=== PATIENT | male | born 1935 | race Caucasian/White ===

== ENCOUNTER 2024-10-23 10:52 | Outpatient (CLI) | payer MEDICARE, OTHER, SELFPAY | END 2024-10-23 10:53 | disposition home or self-care (01) | LOC: US 10:55 | PROVIDERS: PCP Family Medicine; Visit Provider Family Medicine | DX: E04.1 Nontoxic single thyroid nodule (principal) | CPT/HCPCS: 10005; 76942; 88173 ==

== ENCOUNTER 2025-07-14 11:01 | Outpatient (CLI) | payer MEDICARE, OTHER, SELFPAY | END 2025-07-14 11:02 | disposition home or self-care (01) | LOC: AMB 19:01 | PROVIDERS: PCP Family Medicine; Visit Provider Emergency Medicine | DX: R55 Syncope and collapse (principal) | CPT/HCPCS: A0425; A0427 ==

== ENCOUNTER 2025-07-14 11:46 | Emergency (ER) | payer MEDICARE, OTHER, SELFPAY ==
[2025-07-14 12:02] VITALS: BP 124/69; PULSE 63; RESP 20; TEMP 36.3; O2SAT 95; BMI 37.3
--- NOTE | 2025-07-14 12:27 | ED.GENADULT ---
HPI - General Adult General Chief complaint: Hypotension Stated complaint: Hypotension Time Seen by Provider: 07/14/25 12:17 History of Present Illness HPI narrative: c/o lightheaded pt. joined the [facility] today with and was riding a stationary bike when per EMS [facility] staff said he stopped responding per EMS pt. was lightheaded and hypotensive . lowest BP for EMS was 61/54. pt. states he started a new water pill in the last 6 weeks, and drinks 4-5 glasses of water a day. pt. has bandage on head from outpatient procedure, no falls or LOC. pt. got 500 CC NS from EMS 89-year-old man presenting to the emergency department via EMS following a near syncopal event. 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 He does not believe that it has a defibrillator component. Finally today after years of encouragement he has started exercising. 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 Exercise before used to be golfing. Walking can only go a few blocks but that is not unusual. After spending time on the exercise bike today he got off and was feeling lightheaded. Went to sit on a bench. He did not place his head between his legs in lightheadedness continued. He was feeling some tension in the left posterior neck upper back area has since resolved. He did not have chest pain or experiencing unusual shortness of breath. No sense of palpitations. Six weeks ago did begin what sounds like furosemide. Did have a recent Mohs procedure on his scalp. Exam looks like skin graft was obtained from the right upper chest/supraclavicular area. He remains anticoagulated with apixaban Related Data Home Medications ?Medication ?Instructions ?Recorded ?Confirmed apixaban 5 mg tablet (Eliquis) 5 mg PO BID 07/14/25 07/14/25 Allergies Allergy/AdvReac Type Severity Reaction Status Date / Time contrast dye Allergy Mild Rash Uncoded 07/14/25 12:01 Review of Systems Status of ROS: Reports: 6 or more systems reviewed and unremarkable except as noted in History and below PFSH PFSH Social History Smoking Status: Never smoker How often do you have a drink containing alcohol: never AUDIT-C Alcohol total score: 0 Non-prescribed substance use: denies use Exam Narrative: Exam Narrative: Pleasant. Appears little tired but answers questions quickly easily. Cranial nerves 2-12 intact. He transitions without notable difficulty. Skin is warm and dry. No indication of injury. There is well-healing surgical scar at the right mid clavicle and removing bandages from the scalp there is healing ulceration that does not look to be infected. Heart in slow rate but regular rhythm. Lungs are clear. Abdomen is soft and nontender. Moving all extremities without difficulty. No lower extremity edema. Do check orthostatics and they are unremarkable. Const: Vital Signs, click to edit/add: Vital Signs - 24 hr 07/14/25 12:02 07/14/25 12:58 Temperature 97.3 F L Pulse Rate [Pulse Oximeter] 63 Pulse Rate [orthos tatic lying Right Pulse Oximeter] 60 Pulse Rate [orthos tatic sitting Righ t Pulse Oximeter] 62 Pulse Rate [orthos tatic standing Rig ht Pulse Oximeter] 70 Respiratory Rate 20 Blood Pressure [Ri ght Upper Arm] 124/69 Blood Pressure [or thostatic lying Ri ght Arm] 119/67 Blood Pressure [or thostatic sitting Right Arm] 129/74 Blood Pressure [or thostatic standing Right Arm] 131/73 Pulse Oximetry 95 Documenting provider has reviewed patient's vital signs: yes Course Vital Signs Vital signs: Initial Vital Signs Temperature 97.3 F L 07/14/25 12:02 Temperature Source Temporal Artery Scan 07/14/25 12:02 Pulse Rate 63 07/14/25 12:02 Respiratory Rate 20 07/14/25 12:02 Blood Pressure 124/69 07/14/25 12:02 Blood Pressure Mean 87 07/14/25 12:02 Pulse Oximetry 95 07/14/25 12:02 Vital Signs Temperature 97.3 F L 07/14/25 12:02 Pulse Rate 63 07/14/25 12:02 Respiratory Rate 20 07/14/25 12:02 Blood Pressure 124/69 07/14/25 12:02 Pulse Oximetry 95 07/14/25 12:02 Temperature 97.3 F L 07/14/25 12:02 Pulse Rate 60 07/14/25 12:58 Respiratory Rate 20 07/14/25 12:02 Blood Pressure 119/67 07/14/25 12:58 Pulse Oximetry 95 07/14/25 12:02 Medications Administered Medications: Discontinued Medications Generic Name Dose Route Start Last Admin Trade Name Azalia PRN Reason Stop Dose Admin Sodium Chloride 1,000 mls @ 1,000 mls/hr 07/14/25 12:58 07/14/25 14:46 0.9 % Sodium Chloride 1000 Ml IV 07/14/25 13:57 1,000 mls/hr .Q1H ONE Infusion Medical Decision Making MDM Narrative Medical decision making narrative: Monitor for time on garden consultant looking for evidence of arrhythmia. I do think this was a near syncopal, vasovagal event. Probably brought on by unusual level of exercise. Check standard labs for red flags. Anemia? Orthostatics are reassuring. Mildly elevated WBCs of unclear etiology No event during time of monitoring in the ER. Received a liter of NS. Continues to feel well. See patient discharge plan for further discussion. It could be that some degree of dehydration played a role in your symptoms today though I can not prove it here. Your workup here today looked quite good. No evidence of an arrhythmia either. It would seem that maybe you just pushed it a little bit too much too soon. Maybe cut this back to half of what you did today for a week and then try to work your way back up. I would discuss your efforts at exercise with your primary care provider. Discuss medications that might make it use your harder for you to work out. I would encourage you to continue with these efforts at physical activity as I think you will be better for it in the long run. Medical Records Medical records reviewed: Yes I reviewed the patient's medical records Lab Data Lab results reviewed: Yes I reviewed the patient's lab results Labs: Lab Results 07/14/25 07/14/25 Range/Units 13:18 14:15 WBC 13.36 H (4.50-11.00) K/uL RBC 5.41 (4.30-5.90) m/uL Hgb 15.1 (13.5-17.5) gm/dL Hct 45.5 (37.0-53.0) % MCV 84 (80-100) fL MCH 28 (26-34) pg MCHC 33 (32-36) gm/dL RDW Coeff of Ilia 12.7 (11.5-15.5) % Plt Count 203 (140-440) K/uL Neut % (Auto) 81.0 H (42.0-72.0) % Lymph % (Auto) 9.9 L (20-44) % [place] % (Auto) 6.6 (0.0-11.0) % Eos % (Auto) 1.8 (0.0-7.0) % Baso % (Auto) 0.4 (0.0-3.0) % Neut # (Auto) 10.80 H (1.7-7.0) K/uL Lymph # (Auto) 1.30 (0.90-2.90) K/uL [place] # (Auto) 0.90 (0.00-0.90) K/UL Eos # (Auto) 0.20 (0.00-0.50) K/uL Baso # (Auto) 0.10 (0.00-0.30) K/uL Abs Immat Gran (auto) 0.00 (0.00-0.30) K/uL Imm/Tot Granulo (auto) 0.3 % INR 1.39 H (0.91-1.10) APTT 30 (23-33) Seconds Sodium 137 (135-149) mmol/L Potassium 4.3 (3.6-5.1) mmol/L Chloride 104 (96-114) mmol/L Carbon Dioxide 19 L (20-32) mmol/L Anion Gap 14 (7-15) mEq/L BUN 18 (7-30) mg/dL Creatinine 1.2 (0.5-1.5) mg/dL Estimated Creat Clear 44.78 Estimated GFR 59 ml/min Glucose 115 (60-115) mg/dL Calcium 9.3 (8.4-10.6) mg/dL Troponin I < 0.01 (0.01-0.04) ng/mL NT-Pro-B Natriuret Pep 1800 H (See Note) pg/mL Urine Color Yellow (Yellow) Urine Appearance Clear (Clear) Urine pH 6.0 (5.0-8.5) Ur Specific [place] 1.020 (1.000-1.030) Urine Protein Trace A (Negative) Urine Glucose (UA) Negative (Negative) Urine Ketones Negative (Negative) Urine Blood Negative (Negative) Urine Nitrite Negative (Negative) Urine Bilirubin Negative (Negative) Urine Urobilinogen 1.0 (0.2-1.0) Ur Leukocyte Esterase Negative (Negative) Urine RBC 0-2 (0-2) Urine WBC 0-2 (0-5) Ur Squamous Epith Cells None (None-Few) Urine Bacteria None (None) POC Troponin I 0.03 (0.01-0.04) ng/ml ECG Data Attestation: I personally reviewed and interpreted this ECG as follows: (Intraventricular block. Rate of 62. No prior for comparison. PVC?) Discharge Plan Discharge Clinical Impression: Near syncope Patient Disposition: Home w/ Parent or Adult Additional Instructions: It could be that some degree of dehydration played a role in your symptoms today though I can not prove it here. Your workup here today looked quite good. No evidence of an arrhythmia either. It would seem that maybe you just pushed it a little bit too much too soon. Maybe cut this back to half of what you did today for a week and then try to work your way back up. I would discuss your efforts at exercise with your primary care provider. Discuss medications that might make it use your harder for you to work out. I would encourage you to continue with these efforts at physical activity as I think you will be better for it in the long run. Prescriptions: No Action Eliquis 5 mg tablet 5 mg PO BID Follow Up/Referrals: Rashida Kiser DO [Primary Care Provider, Family Practice] Stand Alone Forms: MyHealth Info Instructions
[2025-07-14 12:58] VITALS: BP 119/67; BP 129/74; BP 131/73; PULSE 60; PULSE 62; PULSE 70
[2025-07-14 13:33] LABS: Hematocrit* 45.5 % (37.0-53.0); Hemoglobin* 15.1 gm/dL (13.5-17.5); Immature Granulocytes Pct Auto 0.3 %; Mean Corpuscular HGB Conc 33 gm/dL (32-36); Mean Corpuscular Hemoglobin 28 pg (26-34); Mean Corpuscular Volume 84 fL (80-100); RDW Coefficient of Variation % 12.7 % (11.5-15.5); Red Blood Count* 5.41 m/uL (4.30-5.90); White Blood Count* 13.36 K/uL (4.50-11.00)
[2025-07-14 13:36] LABS: Immature Granulocytes Abs Auto 0.00 K/uL (0.00-0.30); Lymphocytes Absolute Auto 1.30 K/uL (0.90-2.90)
[2025-07-14 13:37] LABS: Slide Review Reflex No
[2025-07-14 13:42] LABS: Chloride* 104 mmol/L (96-114); Sodium* 137 mmol/L (135-149)
[2025-07-14 13:43] LABS: Potassium* 4.3 mmol/L (3.6-5.1)
--- OUTSIDE RECORDS SUMMARY | 2025-07-14 13:43 | XMS_ITS | Clinical Summary ---
Author Organization [facility] Address [address] [place] [id number] Care Team Providers Care Audio Video Technician Name Role Phone David Smart MD Unavailable [phone] Rashida Kiser DO Primary Care Provider [phone] Allergies Active Allergy Reactions Criticality Noted Date Comments Perflutren Lipid Microspheres Hives stress echo contrast Shellfish Containing Products Other - Describe In Comment Field High 08/01/2007 throat swells Azithromycin Syncope High 10/01/2019 Prolonged QT and possible torsades Medications blood sugar diagnostic (Accu-Chek Guide test strips) stripIndications:Contro lled type 2 diabetes mellitus without complication, without long-term current use of insulin (HC) Dispense item covered by pt ins. 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 05/19/20 24 Active ketoconazole 2 % creamIndications:Rash APPLY TOPICALLY TO AFFECTED AREA TWICE DAILY UNTIL RESOLVED 60 g 11 01/16/20 25 Active ketoconazole 2% shampoo 2 % shampooIndications:Rash Shampoo the hair thoroughly each day for 3 days. 120 mL 1 01/16/20 25 Active calcium carbonate/vitamin D3 (CALCIUM 500 + D ORAL) Take 1 Tablet by mouth once every other day. Active metoprolol tartrate 25 mg tabletIndications:Essen tial hypertension,Atheroscle rosis of [place] coronary artery of [place] heart without angina pectoris Take 1 Tablet (25 mg) by mouth two times daily. 180 Tablet 3 03/19/20 25 Active lisinopriL 40 mg tabletIndications:HTN (hypertension) Take 1 Tablet (40 mg) by mouth once daily. 90 Tablet 3 03/19/20 25 Active amLODIPine 10 mg tabletIndications:Essen tial hypertension Take 1 Tablet (10 mg) by mouth once daily. 90 Tablet 3 03/19/20 25 Active apixaban (Eliquis) 5 mg tabletIndications:Parox ysmal atrial fibrillation (HC) Take 1 Tablet (5 mg) by mouth two times daily. 180 Tablet 3 03/19/20 25 Active atorvastatin 20 mg tabletIndications:Pure hypercholesterolemia Take 1 Tablet (20 mg) by mouth at bedtime. 90 Tablet 3 03/19/20 25 Active clobetasol 0.05% TOPICAL 0.05 % external solutionIndications:Sca lp irritation Use 1-2 times a week on scalp to help with scalp itching 50 mL 1 03/19/20 25 Active furosemide (LASIX) 20 mg tabletIndications:Histo ry of chronic CHF 20mg every other day. 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 Referral to [facility]. Type 2 diabetes mellitus wit h stage 3 chronic kidney disease, without long-term current use of insulin, unspecified whether stage 3a or 3b CKD 11/22/2023 Left-sided cerebrovascular accident (CVA) 2020 Overview (11/25/2020): Right homonymous hemianopsia Probably due to new onset atrial fibrillation on 11/11/2020 CAD (coronary artery disease) 11/15/2020 HTN (hypertension) 11/15/2020 CKD (chronic kidney disease), stage III 11/15/19 21 Paroxysmal atrial fibrillation 11/15/2020 NSTEMI (non-ST elevated myocardial infarction) 0 11/10/2020 CHB (complete heart block) 11/10/2020 Prolonged QT interval 10/01/2019 Gouty arthritis of left great toe 01/09/2019 Controlled type 2 diabetes m ellitus without complication, without long-term current use of insulin 01/29/2017 Basal cell carcinoma of left eyelid 02/05/2015 Physical exam, annual 12/30/2013 Squamous cell carcinoma, 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 Overview (12/30/2013): Removed 07/2013 Atypical mole 02/22/2011 Overview (03/09/2011): back, moderate atypia Chronic rhinitis 10/07/2009 Unspecified essential hypertension 08/01/2007 Overview (08/01/2007): 1985 Pure hypercholesterolemia 08/01/2007 Obesity, unspecified 08/01/2007 Atherosclerosis of [place] co ronary artery of [place] heart without angina pectoris 08/01/2007 Overview (12/30/2013): Angioplasty -1995 Postsurgical percutaneous tr ansluminal coronary angioplasty status 08/01/2007 Overview (08/01/2007): Gastroesophageal reflux disease without esophagi tis 08/01/2007 Allergic rhinitis, cause unspecified 08/01/2007 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 08/01/2007 Overview (08/01/2007): nose 2006 Resolved Problems Problem Noted Date Diagnosed Date Resolved Date Acute diastolic CHF (congest roro heart failure) 11/15/2020 11/22/2023 Acute hypoxemic respiratory failure 11/10/2020 03/08/2022 Encounters Date Type Department Care Team Description 06/10/2025 10:00 AM CDT Office Visit [facility] [address] [place] [address] Giles Kaye MD Consult 06/10/2025 Travel 06/06/2025 Travel 05/12/2025 10:00 AM CDT Office Visit [facility] [address] [facility] [address] Rashida Kiser DO Medication Management (furosemide) 05/12/2025 Travel 05/07/2025 Travel 04/25/2025 Orders Only [facility] [address] [facility] [address] Rashida Kiser DO <No scans attached> 04/24/2025 10:00 AM CDT Ancillary Procedure [facility] [address] [facility] [id number] 04/24/2025 Travel from Last 3 Months Immunizations Immunization Administration Dates Next Due COVID-19 VACCINE SPIKEVAX (M ODERNA 50MCG/0.5ML) 12YO+ PFS 03/19/2025,10/12/2023 COVID-19 vaccine (Pfizer-Bio NTech 30mcg/0.3mL) 12YO+ BIVALENT PF, MDV 03/12/2023 COVID-19 vaccine (Pfizer-BioNTech 30mcg/0.3mL) P F, MDV 11/30/2020,11/04/2020 Influenza RIV4 (Age 18+ Years) PRESERV FREE 02/2020 Influenza, High-dose Inactivated 08/25/2014 Influenza, High-dose Quadrivalent Inactivated ,06/24/2021 Influenza, IIV3 (Age >=3 years) 10/16/2012,08/01 Influenza, Inactivated AIIV4 (Age 65+ Years) Preserv Free 06/08/2022 Influenza, Inactivated IIV3 (Age 65+ Years) Preserv Free 06/05/2024 Pneumococcal Poly,23-Valent (Pneumovax) 10/16/19 13 Pneumococcal conj 13-Valent (Prevnar 13) 015 Td, Preservative Free (age >= 7 Years) 7 Tdap 10/16/2012 Family History Medical History Relation Name Comments Hypertension Father Stroke Father d 86 yo Diabetes Maternal Grandfather Heart Disease Mother d 88 yo 1st NV at 51 yo Hypertension Mother Hypertension Sister 1 Hypertension Sister 2 Relation Name Status Comments Father Maternal Grandfather Mother Sister 1 Sister 2 Social History Tobacco Use Types Packs/Day Years Used Date Smoking Tobacco: Never Smokeless Tobacco: Never Tobacco Cessation:Counseling Given: Yes Alcohol Use Standard Drinks/Week Comments Not Currently 0 (1 standard drink = 0.6 oz pur e alcohol) 1 glass of wine a month PHQ-2 Answer Date Recorded PHQ-2 TOTAL SCORE 0 03/19/2025 Social Connections Answer Date Recorded Do you often feel lonely or isolated from those around you? 0 03/15/2025 Alcohol Use Answer Date Recorded How often do you have a drink containing alcohol ? 1 06/10/2025 How many drinks containing a lcohol do you have on a typical day when you are drinking? 0 06/10/2025 How often do you have five or more drinks on one occasion? 0 06/10/2025 Financial Resource Strain Answer Date R ecorded Difficulty of Paying Living Expenses 3 03/15/2025 Difficulty of Paying Living Expenses Not on file 03/15/2025 Food Insecurity Answer Date Recorded Do you worry your food will run out before you are able to buy more? 1 03/15/2025 Transportation Needs Answer Date Record ed Does lack of transportation keep you from medica l appointments? 1 03/15/2025 Does lack of transportation keep you from work, meetings or getting things that you need? 1 03/15/2025 Housing Stability Answer Date Recorded What is your housing situation today? 1 03/15/2025 Utilities Answer Date Recorded Do you have trouble paying f or utilities (for example, heat, electricity, water, phone)? 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 Gender Identity Not on file Sexual Orientation Not on file Occupation Industry Job Start Date Job End Date retired early Not on file Not on file Not on file Obstetrics History Last Filed Vital Signs Vital Sign Reading Time Taken Comments Blood Pressure 126/64 06/10/2025 10:01 AM CDT Pulse 64 06/10/2025 10:01 AM CDT Temperature 36.3 C (97.3 F) 07/26/2021 12:30 PM CDT Respiratory Rate 16 07/26/2021 12:30 PM CDT Oxygen Saturation 97% 06/10/2025 10:01 AM CDT Inhaled Oxygen Concentration - - Weight 94.8 kg (209 lb 1.6 oz) 06/10/2025 10:01 AM CDT Height 170.2 cm (5' 7) 03/19/2025 10:33 AM CDT Body Mass Index 32.75 03/19/2025 10:33 AM CDT Plan of Treatment Upcoming Encounters Date Type Department Care Team (Late st Contact Info) Description 10/12/2025 Cardiac Device Check [facility] [phone] Health Maintenance Due Date Last Done Comments Zoster (shingles) series for age 50+ (1 of 2) 1954 RSV vaccine for adults or (1 - 1-dose 75+ series) 2012 Tetanus booster 10/16/2022 10/16/2012, 09/25, 08/01/2007 COVID-19 vaccine series ( season) 2025 03/19/2025, 07/28/2024, 10/12/2023, Additional history exists Influenza Vaccine (#1) 2025 , 06/08/2022, 06/29/2020, Additional history exists BMI (ht and wt on same day) for age 18+ 03/19/2026 03/19/2025, 03/17/2024, 03/12/2023, Additional history exists Depression screening for age 12+ 03/19/2026 03/19/2025, 03/17/2024, 03/15/2023, Additional history exists Medicare Wellness for age 65+ 03/20/2026 03/19/2025, 03/17/2024, 03/12/2023, Additional history exists Pneumococcal series for age 50+ Completed 01/06/2015, 10/16/2012 Hepatitis B series for 19+ Aged Out N o longer eligible based on patient's age to complete this topic Procedures Procedure Name Priority Date/Time Associated Diagnosis Comments BASIC METABOLIC PANEL Routine 05/12/2025 11:10 AM CDT History of chronic CHF ECHO TTE COMPLETE WO CONTRAST Routine 04/24/2025 11:03 AM CDT History of chronic CHF Bilateral lower extremity edema from Last 3 Months Results * (ABNORMAL) BASIC METABOLIC PANEL (05/12/2025 11:10 AM CDT) SODIUM 140 135 - 146 mmol/L 05/13/2025 6:27 AM CDT [facility] POTASSIUM 4.1 3.5 - 5.3 mmol/L 05/13/2025 6:27 AM CDT [facility] CARBON DIOXIDE 28 20 - 32 mmol/L 05/13/2025 6:27 AM CDT [facility] GLUCOSE 108(H) 65 - 99 mg/dL 05/13/2025 6:27 AM CDT [facility] Comment: Fasting reference interval For someone without known diabetes, a glucose value between 100 and 125 mg/dL is consistent with prediabetes and should be confirmed with a follow-up test. CALCIUM 9.9 8.6 - 10.3 mg/dL 05/13/2025 6:27 AM CDT [facility] CREATININE 1.18 0.70 - 1.22 mg/dL 05/13/2025 6:27 AM CDT [facility] BUN/CREATININE RATIO SEE NOTE: 6 - 22 (calc) 05/13/2025 6:27 AM CDT [facility] Comment: Not Reported: BUN and Creatinine are within reference range. EGFR 60 > OR = 60 mL/min/1. 73m2 05/13/2025 6:27 AM CDT [facility] UREA NITROGEN (BUN) 23 7 - 25 mg/dL 05/13/2025 6:27 AM CDT [facility] ELECTROLYTE BALANCE 8 7 - 17 mmol/L (calc) 05/13/2025 6:27 AM CDT [facility] CHLORIDE 104 98 - 110 mmol/L 05/13/2025 6:27 AM CDT [facility] Blood BLOOD SPECIMEN / Unknown [facility] / Unknown 05/12/2025 11:10 AM CDT 05/12/2025 11:16 AM CDT us Rashida Kiser DO CHEMISTRY Final Resu lt [facility] [address] [place] [address], * ECHO TTE COMPLETE WO CONTRAST (04/24/2025 11:03 AM CDT) AORTIC VALVE MEAN PG 3 mmHg EJECTION FRACTION 51 % PEAK TR VELOCITY 2.4 m/s LVEDD 3.6 cm MITRAL VALVE MR ERO 23 mm2 EJECTION FRACTION 50 - 55% Anatomical Region Laterality Modality Ultrasound 04/24/2025 10:0 5 AM CDT Narrative 04/24/2025 11:43 AM CDT ECHOCARDIOGRAM SHADI DURAN : 1935 89 years Study Date: 04/24/2025 10:05:29 AM Gender: M BP: 0/0 mmHg Height: 170.00 cm BSA: 2.06 m Weight: 95.00 kg Tech: YONATAN Referring MD: RASHIDA KISER Site: [facility] Reading Location: Mobile OP Patient Location: Outpatient. Procedure: 2D, Color Doppler and Spectral Doppler. Indication for study: Edema/ Pacemaker Cardiac Rhythm: Normal sinus.Study quality: Good. Final Impressions: 1. LVEF estimate 50-55%. Severe asymmetric LVH. 2. Normal RV size and global function. Device lead in the right heart. 3. Moderate MR. 4. Vwea-vb-tkksgbaw TR. 5. Moderate MYRIAM. 6. Mild AI. 7. Normal PASP and RAP estimates. Chamber Sizes and Function Severe asymmetric left ventricular hypertrophy. No resting regional wall motion abnormality visualized. Left atrial size is moderately enlarged. Right ventricular cavity size is normal, global systolic RV function is normal. Pacing wire/catheter visualized in the right ventricle. The right atrium is moderately enlarged. Right atrial area is 22 cm . The pulmonary artery is not well visualized. The sinus of Valsalva is normal sized. The ascending aorta is normal sized. Valves, RV Pressures and Diastolic Function The aortic valve is sclerotic, no stenosis and mild regurgitation. The mitral valve is normal in structure, moderate mitral regurgitation. Indeterminate pattern of LV diastolic filling. The tricuspid valve is normal in structure, mild-moderate tricuspid regurgitation. The tricuspid regurgitant velocity is 2.4 m/s, the estimated right ventricular systolic pressure is 24 mmHg plus right atrial pressure. There is normal estimated pulmonary pressure by tricuspid regurgitation velocity and right atrial pressure. The pulmonic valve is not well visualized. No pulmonary regurgitation. TTE images do not appear adequate for transcather intervention with patient supine. Masses, Effusion, Shunts There is no pericardial effusion. The inferior vena cava is normal sized, respiratory size variation greater than 50%. No left to right shunting was detected by limited color flow Doppler interrogation of the interatrial septum. MEASUREMENTS AND CALCULATIONS 2-D Measurements and LV Function: LVID (d) 3.6 cm LVOT diameter 2.1 cm IVS (d) 1.6 cm HR 68 bpm LVPW (d) 1.6 cm LA Vol index 48 ml/m2 Ao Sinus 3.7 cm RA area 22 cm Ao Sinus ULN 4.2 cm * RV Basal Diam 4.5 cm Asc Ao 3.9 cm RV Mid Diam 3.2 cm Asc Ao ULN 4.4 cm * * Input age outside of range, reported values correspond to Age = 82 Diastology: Mitral Tissue Doppler E Peak 1.4 m/s e', Septum 0.06 m/s A Peak 0.5 m/s e', Lateral 0.11 m/s E/A 2.9 E/e' Average 16.14 DT 216 msec Aortic Valve: Vmax 1.2 m/s JOAN (V) 3.20 cm VTI 0.27 m JOAN (I) 3.32 cm LVOT V max 1.0 m/s Max PG 6 mmHg LVOT VTI 0.25 m Mean PG 3 mmHg SV 91 ml Dim Index 0.92 SV index 44 ml/m CO 6.2 l/min CI 3.0 l/min/m Mitral Valve: MVA 3.5 cm MR ERO 0.23 cm MV P 1/2 63 msec MR Vol. 36 ml MR TVI 1.55 m Tricuspid Valve and estimated PA pressures: TR Vmax 2.4 m/s TAPSE 2.2 cm TR maxG 24 mmHg . This study was interpreted by an [facility] accredited facility. Final Procedure Note Alberto Tatum MD - 04/24/2025 ECHOCARDIOGRAM SHADI DURAN : 1935 89 years Study Date: 04/24/2025 10:05:29 AM Gender: M BP: 0/0 mmHg Height: 170.00 cm BSA: 2.06 m Weight: 95.00 kg Tech: YONATAN Referring MD: RASHIDA KISER Site: [facility] Reading Location: Mobile OP Patient Location: Outpatient. Procedure: 2D, Color Doppler and Spectral Doppler. Indication for study: Edema/ Pacemaker Cardiac Rhythm: Normal sinus.Study quality: Good. Final Impressions: 1. LVEF estimate 50-55%. Severe asymmetric LVH. 2. Normal RV size and global function. Device lead in the right heart. 3. Moderate MR. 4. Riic-zs-ybrhomny TR. 5. Moderate MYRIAM. 6. Mild AI. 7. Normal PASP and RAP estimates. Chamber Sizes and Function Severe asymmetric left ventricular hypertrophy. No resting regional wallmotion abnormality visualized. Left atrial size is moderately enlarged.Right ventricular cavity size is normal, global systolic RV function isnormal. Pacing wire/catheter visualized in the right ventricle. The rightatrium is moderately enlarged. Right atrial area is 22 cm . The pulmonaryartery is not well visualized. The sinus of Valsalva is normal sized. Theascending aorta is normal sized. Valves, RV Pressures and Diastolic Function The aortic valve is sclerotic, no stenosis and mild regurgitation. Themitral valve is normal in structure, moderate mitral regurgitation.Indeterminate pattern of LV diastolic filling. The tricuspid valve isnormal in structure, mild-moderate tricuspid regurgitation. The tricuspidregurgitant velocity is 2.4 m/s, the estimated right ventricular systolicpressure is 24 mmHg plus right atrial pressure. There is normal estimatedpulmonary pressure by tricuspid regurgitation velocity and right atrialpressure. The pulmonic valve is not well visualized. No pulmonaryregurgitation. TTE images do not appear adequate for transcatherintervention with patient supine. Masses, Effusion, Shunts There is no pericardial effusion. The inferior vena cava is normal sized,respiratory size variation greater than 50%. No left to right shunting wasdetected by limited color flow Doppler interrogation of the interatrialseptum. MEASUREMENTS AND CALCULATIONS 2-D Measurements and LV Function: LVID (d) 3.6 cm LVOT diameter2.1 cm IVS (d) 1.6 cm HR 68bpm LVPW (d) 1.6 cm LA Vol index 48ml/m2 Ao Sinus 3.7 cm RA area 22cm Ao Sinus ULN 4.2 cm * RV Basal Diam4.5 cm Asc Ao 3.9 cm RV Mid Diam3.2 cm Asc Ao ULN 4.4 cm * * Input age outside of range, reported values correspond to Age = 82 Diastology: Mitral Tissue Doppler E Peak 1.4 m/s e', Septum 0.06 m/s A Peak 0.5 m/s e', Lateral 0.11 m/s E/A 2.9 E/e' Average 16.14 DT 216 msec Aortic Valve: Vmax 1.2 m/s JOAN (V) 3.20 cm VTI 0.27 m JOAN (I) 3.32 cm LVOT V max 1.0 m/s Max PG 6 mmHg LVOT VTI 0.25 m Mean PG 3 mmHg SV 91 ml Dim Index 0.92 SV index 44 ml/m CO 6.2 l/min CI 3.0 l/min/m Mitral Valve: MVA 3.5 cm MR ERO 0.23 cm MV P 1/2 63 msec MR Vol. 36 ml MR TVI 1.55 m Tricuspid Valve and estimated PA pressures: TR Vmax 2.4 m/s TAPSE 2.2 cm TR maxG 24 mmHg . This study was interpreted by an [facility] accredited facility. 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
[2025-07-14 13:45] LABS: Troponin, Point-of-Care* 0.03 ng/ml (0.01-0.04)
[2025-07-14 13:46] LABS: Anion Gap 14 mEq/L (7-15); Blood Urea Nitrogen* 18 mg/dL (7-30); Calcium* 9.3 mg/dL (8.4-10.6); Carbon Dioxide* 19 mmol/L (20-32); Creatinine* 1.2 mg/dL (0.5-1.5); Est. Creatinine Clearance* 44.78; Estimated Glomerular Filt Rate 59 ml/min; Glucose* 115 mg/dL (60-115)
[2025-07-14 13:50] LABS: INR 1.39 (0.91-1.10); Prothrombin Time 18.0 Seconds
[2025-07-14 14:05] LABS: NT Pro B Type NatriureticPept* 1800 pg/mL (See Note)
[2025-07-14 14:25] LABS: Appearance Urine Clear (Clear)
== END 2025-07-14 15:09 | disposition home or self-care (01) ==
PROVIDERS: Emergency Provider Family Medicine; PCP Family Medicine
DX: I95.9 Hypotension, unspecified (principal); I25.2 Old myocardial infarction; Z95.0 Presence of cardiac pacemaker
CPT/HCPCS: 36415; 80048; 81001; 83880; 84484; 85025; 85610; 85730; 93005; 96360; 99284; J7030